=== PATIENT | male | born 1990 | race Two or more races ===

== ENCOUNTER 2024-07-31 13:51 | Emergency (ER) | payer MEDICAID, SELFPAY ==
[2024-07-31 14:29] VITALS: BP 133/86; PULSE 79; RESP 18; TEMP 36.6; O2SAT 99; BMI 29.0
--- NOTE | 2024-07-31 14:35 | XR_ITS ---
Examination: Thoracic spine 2 views Technique one AP lateral coned lateral 2 views Date and time: July 31, 2024 1441 hours INDICATIONS: Basketball injury to the back 2 weeks ago with pain. FINDINGS: Thoracic levoscoliosis 10 degrees No thoracic fracture Mild diffuse thoracic disc narrowing IMPRESSION: No thoracic fracture Mild diffuse thoracic disc narrowing
--- NOTE | 2024-07-31 14:43 | EDNOTE_ITS ---
ED Back Injury Pain RME/HPI General Chief Complaint: Back Pain/Injury Stated Complaint: BACK PAIN Time Seen by Provider: 07/31/24 14:18 Source: patient Arrival date/time: 07/31/24 13:51 33-year-old male with no known medical history presents to the emergency room with a chief complaint of thoracic back pain x 2 days Mode of arrival: ambulatory Limitations: no limitations Related Data Previous Rx's ?Medication ?Instructions ?Recorded acetaminophen 650 mg 650 mg PO Q8H PRN fever or p ain 09/03/18 tablet,extended release #30 tabs ibuprofen 600 mg tablet 600 mg PO Q8H PRN fever or p ain 09/03/18 #30 tabs hydrocodone 5 mg-acetaminophen 325 1 tab PO Q6H PRN pa in #8 tabs 03/07/21 mg tablet hydrocodone 5 mg-acetaminophen 325 1 tab PO BID PRN pa in #10 tabs 12/29/21 mg tablet ibuprofen 800 mg tablet 800 mg PO TID PRN pain #30 t abs 12/29/21 amoxicillin 500 mg capsule 500 mg PO TID #20 caps 04/12 07/02 hydrocodone 5 mg-acetaminophen 325 1 tab PO Q8H #7 tab s 07/07/23 mg tablet Allergies Allergy/AdvReac Type Severity Reaction Status Date / Time No Known Allergies Allergy Verified 07/07/23 04:18 Review of Systems Review of Systems Systems Reviewed: All systems reviewed, normal except as documented Constitutional Constitutional: Reports system reviewed and no additional complaints, except as documented, Denies fatigue, Denies fever(s), Denies headache(s) and Denies weakness Eyes Eyes: Reports system reviewed and no additional complaints, except as documented, Denies blurry vision and Denies change in vision ENT Ears, Nose, Mouth, and Throat: Reports system reviewed and no additional complaints, except as documented, Denies otalgia, Denies headache(s), Denies nasal congestion, Denies throat swelling and Denies vertigo Cardiovascular Cardiovascular: Reports system reviewed and no additional complaints, except as documented, Denies chest pain, Denies dyspnea and Denies dyspnea on exertion Respiratory Respiratory: Reports system reviewed and no additional complaints, except as documented, Denies chest congestion, Denies cough, Denies dyspnea, Denies dyspnea on exertion and Denies wheezing Gastrointestinal Gastrointestinal: Reports system reviewed and no additional complaints, except as documented, Denies abdominal pain, Denies cramping, Denies nausea and Denies vomiting Genitourinary Genitourinary: Reports system reviewed and no additional complaints, except as documented, Denies dysuria and Denies hematuria Musculoskeletal Musculoskeletal: Reports system reviewed and no additional complaints, except as documented, Reports arthralgias and Reports back pain Integumentary/Breasts Skin/Breast: Reports system reviewed and no additional complaints, except as documented and Denies wounds Neurologic Neurologic: Reports system reviewed and no additional complaints, except as documented, Denies confusion, Denies headache(s), Denies lack of coordination, Denies vertigo and Denies weakness Psychiatric Psychiatric: Reports system reviewed and no additional complaints, except as documented, Denies anxiety, Denies confusion, Denies depression, Denies parano ia, Denies suicidal ideation and Denies tactile hallucinations Endocrine Endocrine: Reports system reviewed and no additional complaints, except as doc umented and Denies fatigue Hematologic/Lymphatic Hematologic/Lymphatic: Reports system reviewed and no additional complaints, except as documented and Denies lymphadenopathy Allergic/Immunologic Allergic/Immunologic: Reports system reviewed and no additional complaints, except as documented, Denies throat swelling, Denies urticaria and Denies wheezing Past Medical History Past Medical History CARDIAC: Negative Congestive Heart Failure RESPIRATORY: Positive Asthma; Negative Chronic Obstructive Pulmonary Disease (COPD) GENITOURINARY: Negative Renal Disease ENT: Negative Cataracts, Glaucoma, Blind, Retinal Detachment, Macular Degeneration, Ear Infection, Deafness or Eye Prosthesis ENDOCRINE: Negative Diabetes Mellitus Type 1 or Diabetes Mellitus Type 2 Social History SMOKING STATUS: Never smoker ED Exam General Limitations: Present no limitations General appearance: Present alert and in no apparent distress Head Head exam: Present atraumatic Eye Eye exam: Present normal appearance, PERRL and EOMI ENT ENT exam: Present normal exam, normal oropharynx and mucous membranes moist Neck Neck exam: Present normal inspection, full ROM and trachea midline Chest Chest inspection: Present normal inspection and symmetric chest wall rise Respiratory Respiratory exam: Present normal lung sounds bilaterally Cardiovascular Cardiovascular exam: Present regular rate, normal rhythm and normal heart sounds Abdominal Exam Abdominal exam: Present soft and normal bowel sounds Extremities Exam Extremities exam: Present normal inspection and full ROM Back Exam Back exam: Present normal inspection, full ROM, tenderness and vertebral tende rness; Absent CVA tenderness (R) or CVA tenderness (L) Neurological Exam Neurological exam: Present alert, oriented X3 and CN II-XII intact Psychiatric Psychiatric exam: Present normal affect and normal mood Skin Skin exam: Present warm, dry, intact and normal color Course Quality Measures none Orders Category Date Time Status XR thoracic spine 2V Stat Exams 07/31/24 14:35 Completed Vital Signs Vital signs: Vital Signs Temperature 97.9 F 07/31/24 14:29 Pulse Rate 79 07/31/24 14:29 Respiratory Rate 18 07/31/24 14:29 Blood Pressure 133/86 H 07/31/24 14:29 Pulse Oximetry (%) 99 07/31/24 14:29 Oxygen Delivery Method Room Air 07/31/24 14:29 O2 saturation 99% within normal limits Back Pain / Injury MDM Narrative MDM Narrative:: 33-year-old male with no known medical history presents to the emergency room with a chief complaint of thoracic back pain x 2 days Patient is hemodynamically stable and in no apparent distress Physical examination shows tenderness and pain to the thoracic area of the patient's spine with palpation. Lung sounds are clear bilaterally there is no abnormal breath sounds or any difficulty breathing There is no CVA tenderness. X-ray of the thoracic area of the spine was completed and showed no thoracic fracture however there is some mild diffuse and thoracic disc narrowing. There is also some thoracic scoliosis. Patient was educated to follow-up with his primary care provider regarding the scoliosis Patient was discharged and educated to follow-up with primary care provider in the next 24 to 48 hours and return to the emergency room for any evidence of worsening signs or symptoms Patient data External records reviewed:: [facility] previous records Clinical information provided by:: patient Social determinants that could affect healthcare access:: none Patient has the following chronic illnesses:: No chronic illness How is presenting disease/condition affected by chronic disease/condition?: no chronic disease Evaluation data The following diagnostics were reviewed and interpreted by me:: lab results and radiology exam(s) Lab and/or radiology exams considered but not ordered:: Labs and radiology exams considered and ordered Interpretation Summary: Thoracic back [id number]: Thoracic levoscoliosis 10 degrees No thoracic fracture Mild diffuse thoracic disc narrowing IMPRESSION: No thoracic fracture Mild diffuse thoracic disc narrowing Medications / Prescriptions Medications or Prescriptions considered but not ordered:: N/A Medication administrations:: N/A Consultations Consultation(s) initiated? (list below): No Diagnosis Differential diagnosis back pain/injury: lumbar radiculopathy, strain of lumbar region, thoracic back pain, discitis and other Most likely diagnosis given after review of the tests above:: Thoracic back pain Admission Indicated Admission indicated?: not indicated Admission Request Was there a request for admission?: No Disposition Plan Disposition Plan: Discharge Discharge Attestation Discharge Attestation: The patient and all family members were given an opportunity to ask questions and understood the discharge instructions. Discharge instructions specifically effects, indications for sooner follow up or return to the emergency department, and the expected course of current diagnosis. Patient condition: Stable Discharge Plan Plan Patient Disposition: HOME (Self Care) Discharge Disposition comment: Stable Prescriptions/Referrals Prescriptions/Med Rec: No Action acetaminophen 650 mg tablet extended release 650 mg PO Q8H PRN (Reason: fever or pain) Qty: 30 0RF Rx Instructions: swallow whole; do not crush, chew, break, dissolve, cut, or open ibuprofen 600 mg tablet 600 mg PO Q8H PRN (Reason: fever or pain) Qty: 30 0RF Rx Instructions: prn pain / fever hydrocodone-acetaminophen 5-325 mg tablet 1 tab PO Q6H MDD 4 PRN (Reason: pain) Qty: 8 0RF hydrocodone-acetaminophen 5-325 mg tablet 1 tab PO Q8H MDD 3 Qty: 7 0RF ibuprofen 800 mg tablet 800 mg PO TID PRN (Reason: pain) Qty: 30 0RF hydrocodone-acetaminophen 5-325 mg tablet 1 tab PO BID MDD 10 PRN (Reason: pain) Qty: 10 0RF amoxicillin 500 mg capsule 500 mg PO TID Qty: 20 0RF Referrals: No Primary/Family,Physician [Primary Care Provider] - In 1 week Problem List Clinical Impression: Thoracic back pain Patient/Caregiver Discharge Instructions Education Materials: ED Back Contusion Additional Instructions: Please follow-up with your primary care provider in the next 24 to 48 hours X-rays were completed of your back and were negative for any acute findings For any evidence of worsening signs or symptoms return to the emergency room immediately Print Language: Hungarian Stand Alone Forms: Lizzette Award Info., Patient Portal Info Letter PA/FERMENTER Supervising Physician PA/FERMENTER Supervising Physician: Dr. Dickens
== END 2024-07-31 15:29 | disposition home or self-care (01) ==
PROVIDERS: Emergency Provider Family Medicine
DX: M48.04 Spinal stenosis, thoracic region (principal)
CPT/HCPCS: 72070; 99283